=== PATIENT | female | born 1960 | race African-American/Black ===

== ENCOUNTER 2016-12-25 12:36 | Emergency (ER) | payer MEDICAID ==
[~2016-12-25] VITALS: Ht 157.5 cm; Wt 81.6 kg
[~2016-12-25 12:36] MED LIST: AFRIN NASAL SPR30 ML NASAL; ALLERGY10 M1 PO; AMOXICILLIN500 MG ORAL; AURALGAN OTIC S14 ML OT; CLARITIN-D 241 EACH PO; DICLOFENAC SODI25 MG PO; FLONASE1 SPRAYS; FLONASE1 SPRAYS NASAL; HYDROCORTISONE-30 GM TOPIC; IBUPROFEN600 MG ORAL; IBUPROFEN600 MG PO; MELOXICAM15 MG PO; MONISTAT VAGIN; NAPROXEN375 MG ORAL; NITROFURANTOIN100 M2 ORAL; NKM; NORCO 5-325 TA1 EACH ORAL; PHENERGAN/CODE120 ML PO; PROMETHAZI6.25 MG/1 ORAL; PROMETHAZINE V240 ML ORAL; RANITIDINE HCL300 M2 ORAL; TERBINAFINE HC250 MG PO; TESSALON PERLE100 M2 ORAL; TRAMADOL HCL50 MG ORAL; VERTICALM25 MG ORAL; ZITHROMAX250 MG PO; ZYRTEC-D TABLE1 EACH ORAL; no home meds
[2016-12-25 12:54] VITALS: BP 149/92
--- NOTE | 2016-12-25 12:57 | Emergency Room Report ---
History of Present Illness General Chief Complaint: Pain Source: Patient Present Illness HPI 56 y/o female c/o multiple complaints x 1 day. States she was [place] a park for [place] and started having sinus congestion, rhinorrhea and left ear pain. States she used a franca pin to clean out her left ear and went to sleep. States she had slept on 3 pillows and then woke up with pinched nerve in her left side of her neck. States she is taking 500mg APAP w/ some improvement of pain but states she has pain on ROM of neck and left shoulder that is TTP. Denies any current n/v/f/c/d, abd pain, photophobia, phonophobia, CP, SOB or headache. Patient denies any numbness, tingling, pressure, paralysis, cyanosis, bruising, loss of sensation, or loss of range of motion. Allergies: Coded Allergies: CODEINE (Verified Adverse Reaction, Intermediate, PARADOXICAL REACTION, 08/20/12) Patient History Past Medical History: see triage record Past Surgical History: none Pertinent Family History: none Immunizations: UTD Reviewed Nursing Documentation: PMH: Agreed, PSxH: Agreed Nursing Documentation-PMH Past Medical History: No History, Except For Review of Systems All Other Systems: negative except mentioned in HPI Physical Exam Vital Signs Date Time Temp Pulse Resp B/P Pulse Ox O2 Delivery O2 Flow Rate FiO2 12/25/16 12:51 98.4 67 18 149/92 97 Room Air Sp02 EP Interpretation: reviewed, normal General Appearance: no apparent distress, alert, GCS 15, non-toxic Head: normocephalic, atraumatic Eyes: bilateral eye PERRL, bilateral eye normal inspection ENT: hearing grossly normal, no angioedema, normal voice, TMs + canals normal, pharyngeal erythema Neck: full range of motion, no bony tend, supple/symm/no masses, tender lateral - left side radiatiating to anterior left shoulder Respiratory: chest non-tender, lungs clear, normal breath sounds, speaking full sentences Cardiovascular #1: regular rate, rhythm, no edema Musculoskeletal: back normal, gait/station normal, normal range of motion, tender - left shoulder / neck Neurologic: alert, oriented x3, responsive, supervisor roving III-XII nml as tested, motor strength/tone normal, sensory intact, speech normal Psychiatric: judgement/insight normal, memory normal, mood/affect normal, no suicidal/homicidal ideation Skin: normal color, no rash, warm/dry, well hydrated Lymphatic: no adenopathy Medical Decision Making PA Attestation Dr. Howell is my supervising physician with whom patient management has been discussed with. Diagnostic Impression: Primary Impression: Upper respiratory infection Qualified Codes: J00 - Acute nasopharyngitis [common cold] Additional Impression: Cervical muscle strain Qualified Codes: S16.1XXA - Strain of muscle, fascia and tendon at neck level , initial encounter ER Course Pt. presents to the ED c/o of URI sxs and left neck pain Ddx considered but are not limited to bronchitis, pneumonia, viral upper respiratory tract infection, meningitis, muscle strain, contusion, fracture, spinal stenosis, AOM, AOE, TM rupture, trauma Vital signs: are WNL, pt. is afebrile H&PE are most consistent with viral upper respiratory tract infection with cervical muscle strain ORDERS: none required at this time, the diagnosis is clinical ED INTERVENTIONS: None required at this time. DISCHARGE: At this time pt. is stable for d/c to home. Will provide printed patient care instructions, and any necessary prescriptions. Care plan and follow up instructions have been discussed with the patient prior to discharge. Chest X-Ray Diagnostic Results Chest X-Ray Ordered: No Last Vital Signs Date Time Temp Pulse Resp B/P Pulse Ox O2 Delivery O2 Flow Rate FiO2 12/25/16 12:54 98.4 67 18 149/92 97 Room Air Disposition: HOME, SELF-CARE Condition: Stable Scripts Methocarbamol* (ROBAXIN-750*) 750 Mg Tablet 750 MG PO TID, #30 TAB 0 Refills Prov: SABRY,TAMEEM P.A. 12/25/16 Loratadine (LORATADINE) 10 Mg Tablet 10 MG PO DAILY for 14 Days, #14 TAB Prov: SABRY,TAMEEM P.A. 12/25/16 Naproxen* (NAPROXEN*) 500 Mg Tablet 500 MG ORAL TWICE A WEEK, #20 TAB 0 Refills Prov: SABRY,TAMEEM P.A. 12/25/16 Additional Instructions: Take medication as directed. Advise patient to use RICE therapy and avoid exercises for the next 2-3 weeks to help rest the neck. Patient instructed to massage the muscles that are tight or tense, put ice for 5-7 minutes or a frozen bag of peas or cold gel pack on the area for 20 minutes at a time, a few times a day, put heat on the area to reduce pain and stiffness by either taking a hot shower or hot bath, or put a hot towel on the area for no more than 20 minutes at a time. Patient instructed to not use anything too hot that could burn your skin. Advised patient to use salt water gargle PRN. Advised patient to use chloraseptic as needed for throat pain in addition to APAP Q4H. Patient advised they can take Ibuprofen and Tylenol Q6H together for fever control as well. Educated patient on rhinitis and encouraged patient to use OTC nasal decongestants, nasal irrigation / saline sprays, and use of nasal suction such as NoseFrida. Educated patient on the benefits of the various OTC medications available (ie. H1 blockers, decongestants, nasal steroids, etc.). If sxs worsen or don't improve, please return sooner. Go to the ER if you develop SOB, CP, Rash, photophobia, neck pain, throat swelling occur, go to the ER immediately. CHARAN WOODY Dec 25, 2016 12:57
[2016-12-25] MEDS ORDERED: LORATADINE10 M2 PO (13:01)
[2016-12-25] MEDS ORDERED: NAPROXEN500 M2 ORAL (13:01)
[2016-12-25] MEDS ORDERED: ROBAXIN-750750 MG PO (13:01)
[2016-12-25 13:09] VITALS: BP 149/92
== END 2016-12-25 13:11 | disposition home or self-care (01) ==
LOC: EMR 13:00
DX: J00 Acute nasopharyngitis [common cold] (principal); S16.1XXA Strain of muscle, fascia and tendon at neck level, initial encounter; H92.02 Otalgia, left ear; Z88.6 Allergy status to analgesic agent; X58.XXXA Exposure to other specified factors, initial encounter; Y93.84 Activity, sleeping; Y92.9 Unspecified place or not applicable
CPT/HCPCS: 99284

== ENCOUNTER 2017-03-18 00:40 | Emergency (ER) | payer MEDICAID ==
[~2017-03-18] VITALS: Ht 157.5 cm; Wt 81.6 kg
[~2017-03-18 00:40] MED LIST changes: +LORATADINE10 M2 PO; +NAPROXEN500 M2 ORAL; +ROBAXIN-750750 MG PO
--- NOTE | 2017-03-18 00:55 | Emergency Room Report ---
History of Present Illness General Chief Complaint: General Complaint Source: Patient Present Illness HPI Is a 56-year-old female with no significant past medical history. She presents with left knee pain. Onset was acute. Occurred about an hour ago. She was talking to her neighbor when she felt pain to her left knee. No trauma. Hurts with walking. Worse with lifting on the. Denies any nausea vomiting. Denies any fever or chills. Worse with walking. Allergies: Coded Allergies: CODEINE (Verified Adverse Reaction, Intermediate, PARADOXICAL REACTION, 08/20/12) Patient History Past Medical History: see triage record, old chart reviewed Past Surgical History: other Pertinent Family History: none Social History: Denies: smoking Now: No Immunizations: other Reviewed Nursing Documentation: PMH: Agreed, PSxH: Agreed Nursing Documentation-PMH Past Medical History: No Stated History Review of Systems Eye: Denies: eye pain, blurred vision ENT: Denies: ear pain, nose congestion, throat swelling Respiratory: Denies: cough, shortness of breath Cardiovascular: Denies: chest pain, palpitations Gastrointestinal: Denies: abdominal pain, diarrhea, nausea, vomiting Musculoskeletal: Reports: joint pain, Denies: back pain Skin: Denies: rash Neurological: Denies: headache, numbness Endocrine: Denies: increased thirst, increased urine Hematologic/Lymphatic: Denies: easy bruising All Other Systems: negative except mentioned in HPI Physical Exam Vital Signs Date Time Temp Pulse Resp B/P (MAP) Pulse Ox O2 Delivery O2 Flow Rate FiO2 03/18/17 00:49 98.2 78 16 120/80 98 Room Air vitals normal Sp02 EP Interpretation: reviewed, normal General Appearance: well appearing, no apparent distress, alert, obese Head: normocephalic, atraumatic Eyes: bilateral eye PERRL, bilateral eye EOMI ENT: hearing grossly normal, normal pharynx Neck: full range of motion, supple, no meningismus Respiratory: chest non-tender, lungs clear, normal breath sounds Cardiovascular #1: regular rate, rhythm, no murmur Gastrointestinal: normal bowel sounds, non tender, no mass, no organomegaly, no bruit, non-distended Musculoskeletal: back normal, gait/station normal, normal range of motion, other - Left knee with tenderness along the medial meniscus. There is small amount of effusion. Full range of motion but tender movement. No warmth. No redness. Sensation normal. Pulses normal. Neurologic: oriented x3, responsive Psychiatric: mood/affect normal Skin: warm/dry Procedures Splinting Splinting : Consent: Verbal Location: Left knee Pre-Made Type: ADEEL wrap Pre-Proc Neuro Vasc Exam: normal Post-Proc Neuro Vasc Exam: normal Patient Tolerated: Well Complications: None Medical Decision Making Diagnostic Impression: Primary Impression: Sprain of medial meniscus of left knee Qualified Codes: S83.8X2A - Sprain of other specified parts of left knee, initial encounter Additional Impression: Osteoarthritis of left knee Qualified Codes: M17.12 - Unilateral primary osteoarthritis, left knee ER Course Patient with left knee pain. Most likely a strain/tear of the medial meniscus. No evidence of dislocation or fracture. She does have evidence of osteoarthritis. We'll discharge home. Other X-Ray Diagnostic Results Other X-Ray Diagnostic Results : X-Ray ordered: Left knee # of Views/Limited Vs Complete: 4 View Indication: Pain EP Interpretation: Yes Interpretation: no dislocation, no soft tissue swelling, no fractures Impression: No acute disease Interpreting ER Provider: Electronically signed by Ari Henry MD Last Vital Signs Date Time Temp Pulse Resp B/P (MAP) Pulse Ox O2 Delivery O2 Flow Rate FiO2 03/18/17 00:49 98.2 78 16 120/80 98 Room Air Status: improved Disposition: HOME, SELF-CARE Condition: Stable Scripts Ibuprofen* (MOTRIN*) 600 Mg Tablet 600 MG ORAL THREE TIMES A DAY, #30 TAB 0 Refills Prov: ARI HENRY M.D. 03/18/17 Hydrocodone/Acetaminophen 5-325* (HYDROCODONE/ACETAMINOPHEN 5-325*) 1 Each Tablet 1 TAB ORAL Q6H Y for For Pain, #20 TAB 0 Refills Prov: ARI HENRY M.D. 03/18/17 Additional Instructions: Followup with your DrShukri in 7 days. Return if symptom worsen. ARI HENRY M.D. Mar 18, 2017 00:55
[2017-03-18 01:00] VITALS: BP 120/80
[2017-03-18] MEDS ORDERED: HYDROmorphone 1mg/ml Carpuject IM ONE (01:00)
[2017-03-18] MEDS ORDERED: HYDROCODON-ACE1 EA15 ORAL (01:21)
[2017-03-18] MEDS ORDERED: IBUPROFEN600 MG ORAL (01:21)
[2017-03-18 01:25] VITALS: BP 120/80
--- NOTE | 2017-03-19 09:34 | Diagnostic Imaging Report ---
Indication: PAIN Technique: 4 views of the left knee Comparison: None Findings: There is medial compartment degenerative joint space narrowing. There are medial compartment osteophytes. No suprapatellar effusion. There are inferior and superior pole patellar osteophytes. Impression: No acute bony trauma Degenerative changes, as described This agrees with the preliminary interpretation provided overnight by [facility] service.
== END 2017-03-18 01:25 | disposition home or self-care (01) ==
LOC: EMR 01:00
DX: S83.8X2A Sprain of other specified parts of left knee, initial encounter (principal); X58.XXXA Exposure to other specified factors, initial encounter; Y92.89 Other specified places as the place of occurrence of the external cause; M17.12 Unilateral primary osteoarthritis, left knee
CPT/HCPCS: 29530; 73564; 96372; 99284; J1170

== ENCOUNTER 2017-06-29 09:33 | Emergency (ER) | payer MEDICAID ==
[~2017-06-29] VITALS: Ht 157.5 cm; Wt 81.6 kg
[~2017-06-29 09:33] MED LIST changes: +HYDROCODON-ACE1 EA15 ORAL
--- NOTE | 2017-06-29 10:07 | Emergency Room Report ---
History of Present Illness General Chief Complaint: Upper Respiratory Illness Source: Patient Present Illness HPI The patient's been ill since Monday. She has a cough. left ear pain sore, throat and a scratchy voice. No vomiting or diarrhea. She is coughing up phlegm that is yellowish and green. She is uncertain whether she hears herself wheezing. Pain rated at 7/10, throat and ear, constant, sharp and aching. No meds taken. Child is also ill. No chest pain, headache, rashes, NVD, dysuria, joint pain. Not diabetic. Allergies: Coded Allergies: CODEINE (Verified Adverse Reaction, Intermediate, PARADOXICAL REACTION, 08/20/12) Patient History Past Medical History: see triage record Social History: Denies: smoking Social History Narrative here with Raz Jimenez Last Menstrual Period: NA Reviewed Nursing Documentation: PMH: Agreed, PSxH: Agreed Nursing Documentation-PMH Past Medical History: No History, Except For Hx COPD: No - Sinus problem Review of Systems All Other Systems: negative except mentioned in HPI Physical Exam Vital Signs Date Time Temp Pulse Resp B/P (MAP) Pulse Ox O2 Delivery O2 Flow Rate FiO2 06/29/17 09:37 97.7 76 16 138/80 97 Room Air Sp02 EP Interpretation: reviewed, normal General Appearance: well appearing, no apparent distress Head: normocephalic, atraumatic Eyes: bilateral eye normal inspection, bilateral eye PERRL, bilateral eye EOMI ENT: hearing grossly normal, no angioedema, pharyngeal erythema, other - L TM with fluid and slight buldge, R normal Neck: full range of motion, supple Respiratory: lungs clear, normal breath sounds, no respiratory distress, speaking full sentences Cardiovascular #1: regular rate, rhythm Gastrointestinal: normal inspection Musculoskeletal: digits/nails normal, gait/station normal, normal range of motion Neurologic: normal inspection, alert, oriented x3, normal gait, grossly normal Psychiatric: mood/affect normal Skin: no rash Medical Decision Making Diagnostic Impression: Primary Impression: Otitis media Qualified Codes: H66.002 - Acute suppurative otitis media without spontaneous rupture of ear drum, left ear Additional Impression: URI, acute ER Course Patient presents with productive cough, throat pain and L ear pain. Exam c/w otitis media. Antibiotics indicated. Also will give tx for URI symptoms. Not toxic and no significant co-morbidities. Patient stable for outpatient observation and treatment. Last Vital Signs Date Time Temp Pulse Resp B/P (MAP) Pulse Ox O2 Delivery O2 Flow Rate FiO2 06/29/17 10:40 98.3 60 16 135/86 99 Room Air Status: improved Disposition: HOME, SELF-CARE Condition: Improved Scripts Chlorpheniramine Maleate (CHLOR-TRIMETON) 4 Mg Tablet 4 MG PO Q6HR Y for congestion, #10 TAB Prov: Daryn Rios M.D. 06/29/17 Guaifenesin/Codeine Phos* (ROBITUSSIN AC*) 118 Ml Liquid 1 TSP ORAL Q6H Y for For Cough, #60 ML 0 Refills Prov: Daryn Rios M.D. 06/29/17 Amoxicillin* (AMOXIL*) 500 Mg Capsule 500 MG ORAL THREE TIMES A DAY, #21 CAP Prov: Daryn Rios M.D. 06/29/17 Daryn Rios M.D. Jun 29, 2017 10:06
[2017-06-29] MEDS ORDERED: GUAIFENESIN-CO118 M1 ORAL (10:12)
[2017-06-29] MEDS ORDERED: CHLOR-TRIMETON4 MG PO (10:12)
[2017-06-29] MEDS ORDERED: AMOXICILLIN500 MG ORAL (10:12)
[2017-06-29 10:35] VITALS: BP 107/71
[2017-06-29 10:40] VITALS: BP 135/86
== END 2017-06-29 10:45 | disposition home or self-care (01) ==
LOC: EMR 10:15
DX: H66.92 Otitis media, unspecified, left ear (principal); J06.9 Acute upper respiratory infection, unspecified; Z88.6 Allergy status to analgesic agent
CPT/HCPCS: 99283

== ENCOUNTER 2017-07-30 18:13 | Emergency (ER) | payer MEDICAID ==
[~2017-07-30] VITALS: Ht 157.5 cm; Wt 83.9 kg
[~2017-07-30 18:13] MED LIST changes: +CHLOR-TRIMETON4 MG PO; +GUAIFENESIN-CO118 M1 ORAL
[2017-07-30 18:32] VITALS: BP 166/93
[2017-07-30] MEDS ORDERED: NASAL SPRAY SIN30 ML NS (18:48)
[2017-07-30] MEDS ORDERED: TESSALON PERLE100 MG ORAL (18:48)
[2017-07-30] MEDS ORDERED: IBUPROFEN600 MG ORAL (18:48)
--- NOTE | 2017-07-30 18:58 | Emergency Room Report ---
History of Present Illness General Chief Complaint: Sore Throat Source: Patient, Medical Record Present Illness HPI 57-year-old female no significant past medical history presenting with subjective fever chills cough sore throat sinus pain. States that her cousin was sick with the same symptoms. She is still eating and drinking normally. No chest pain or shortness of breath. Did not get the flu shot this year Allergies: Coded Allergies: CODEINE (Verified Adverse Reaction, Intermediate, PARADOXICAL REACTION, 08/20/12) Patient History Past Medical History: see triage record Past Surgical History: none Pertinent Family History: none Last Menstrual Period: menopause Reviewed Nursing Documentation: PMH: Agreed, PSxH: Agreed Nursing Documentation-PMH Past Medical History: No Stated History Hx Cardiac Problems: No Hx Hypertension: No Hx Pacemaker: No Hx Asthma: No Hx COPD: No Hx Diabetes: No Hx Cancer: No Hx Gastrointestinal Problems: No Hx Dialysis: No History Of Psychiatric Problem: No Hx Neurological Problems: No Hx Cerebrovascular Accident: No Hx Seizures: No Review of Systems All Other Systems: negative except mentioned in HPI Physical Exam Vital Signs Date Time Temp Pulse Resp B/P (MAP) Pulse Ox O2 Delivery O2 Flow Rate FiO2 07/30/17 18:21 98.8 65 16 166/93 97 Room Air Sp02 EP Interpretation: reviewed, normal General Appearance: alert, GCS 15, non-toxic, mild distress Head: normocephalic, atraumatic Eyes: bilateral eye normal inspection, bilateral eye PERRL, bilateral eye EOMI ENT: pharyngeal erythema Neck: normal inspection, full range of motion, supple Respiratory: normal inspection, lungs clear, normal breath sounds, no respiratory distress, no retraction, no wheezing, speaking full sentences, chest symmetrical Cardiovascular #1: normal inspection, regular rate, rhythm, no edema, normal capillary refill Cardiovascular #2: 2+ radial (R), 2+ radial (L) Gastrointestinal: normal inspection, non tender, soft, non-distended, no guarding Musculoskeletal: normal inspection, back normal, normal range of motion, non- tender Neurologic: normal inspection, alert, oriented x3, responsive, motor strength/ tone normal, sensory intact, normal gait, speech normal Psychiatric: normal inspection, judgement/insight normal, memory normal Skin: normal inspection, normal color, no rash, warm/dry, well hydrated, normal turgor Medical Decision Making Diagnostic Impression: Primary Impression: URI, acute ER Course 57-year-old female with flulike symptoms, cough runny nose fever DDX: Likely viral URI, lung exam is normal Plan: Motrin ER course: Patient has remained stable during ED stay. Nontoxic appearing, ambulatory to emergency room Disposition: Patient is to be discharged to home. Prescriptions given are Motrin, Tessalon pearls, nasal spray Patient is instructed to follow up with their primary care doctor within 5 days. Strict return precautions discussed with patient such as fever, chills, worsening/severe pain, chest pain, SOB, nausea, vomiting, which may indicate severe illness. Patient verbalizes understanding and agrees with plan. Please note that this Emergency Department Report was dictated using [employer] Systemsen[employer]al engineering manager technology software, occasionally this can lead to erroneous entry secondary to interpretation by the dictation equipment Laboratory Tests Test 07/30/17 18:25 Urine Color Pale yellow Urine Appearance Clear Urine pH 5 (4.5-8.0) Urine Specific [place] 1.020 (1.005-1.035) Urine Protein Negative (NEGATIVE) Urine Glucose (UA) Negative (NEGATIVE) Urine Ketones Negative (NEGATIVE) Urine Occult Blood 1+ (NEGATIVE) H Urine Nitrite Negative (NEGATIVE) Urine Bilirubin Negative (NEGATIVE) Urine Urobilinogen Normal MG/DL (0.0-1.0) Urine Leukocyte Esterase 1+ (NEGATIVE) H Urine RBC 0-2 /HPF (0 - 2) Urine WBC 2-4 /HPF (0 - 2) Urine Squamous Epithelial Cells Few /LPF (NONE/OCC) Urine Bacteria Few /HPF (NONE) Last Vital Signs Date Time Temp Pulse Resp B/P (MAP) Pulse Ox O2 Delivery O2 Flow Rate FiO2 07/30/17 18:32 98.8 78 16 166/93 97 Room Air Disposition: HOME, SELF-CARE Condition: Improved Scripts Benzonatate* (TESSALON PERLE*) 100 Mg Capsule 100 MG ORAL THREE TIMES A DAY, #21 PERLE Prov: Retino,Clairose M.D. 07/30/17 Ibuprofen* (MOTRIN*) 600 Mg Tablet 600 MG ORAL Q8H Y for For Pain, #30 TAB 0 Refills Prov: Retino,Clairose M.D. 07/30/17 Oxymetazoline Hcl (NASAL SPRAY SINUS) 30 Ml Shelly 30 ML NS BID, #1 SPRAY Prov: Retino,Clairose M.D. 07/30/17 Patient Instructions: Upper Respiratory Infection, Adult, [id number] Gaby Subramanian M.D. Jul 30, 2017 18:58
[2017-07-30 19:02] LABS: APPEARANCE,URINE CLEAR; BILIRUBIN, URINE NEGATIVE (NEGATIVE); COLOR,URINE PALE YELLOW; GLUCOSE, URINE (UA) NEGATIVE (NEGATIVE); KETONES,URINE NEGATIVE (NEGATIVE); LEUKOCYTE ESTERASE ,URINE 1+ (NEGATIVE); NITRITE,URINE NEGATIVE (NEGATIVE); PH,URINE 5 (4.5-8.0); PROTEIN,URINE NEGATIVE (NEGATIVE); UROBILINOGEN,URINE NORMAL MG/DL (0.0-1.0)
[2017-07-30 19:20] VITALS: BP 145/89
[2017-07-30 19:25] VITALS: BP 145/89
== END 2017-07-30 19:25 | disposition home or self-care (01) ==
LOC: EMR 18:30
DX: J06.9 Acute upper respiratory infection, unspecified (principal); Z88.6 Allergy status to analgesic agent
CPT/HCPCS: 81003; 99283

== ENCOUNTER 2017-08-07 20:31 | Emergency (ER) | payer MEDICAID ==
[~2017-08-07] VITALS: Ht 157.5 cm; Wt 81.6 kg
[~2017-08-07 20:31] MED LIST changes: +NASAL SPRAY SIN30 ML NS; +TESSALON PERLE100 MG ORAL
[2017-08-07] MEDS ORDERED: GUAIFENESIN-CO118 M1 ORAL (21:16)
[2017-08-07] MEDS ORDERED: CLARITIN10 MG ORAL (21:16)
[2017-08-07 21:21] VITALS: BP 132/72
--- NOTE | 2017-08-08 01:50 | Emergency Room Report ---
History of Present Illness General Chief Complaint: Flu Like Symptoms Source: Patient Present Illness HPI Patient describes having intermittent cough which is nonproductive or with clear phlegm. Additionally, patient had a sore throat. Has not changed over the past few days. No current fever. Patient denied nausea or vomiting. Cough presented for several days. Patient reports having worsening with sleep. She denies any chest pain Allergies: Coded Allergies: CODEINE (Verified Adverse Reaction, Intermediate, PARADOXICAL REACTION, 08/20/12) Patient History Past Medical History: see triage record Last Menstrual Period: NA Now: No Reviewed Nursing Documentation: PMH: Agreed, PSxH: Agreed Nursing Documentation-PMH Past Medical History: No Stated History Hx Cardiac Problems: No Hx Hypertension: No Hx Pacemaker: No Hx Asthma: No Hx COPD: No Hx Diabetes: No Hx Cancer: No Hx Gastrointestinal Problems: No Hx Dialysis: No Hx Neurological Problems: No Hx Cerebrovascular Accident: No Hx Seizures: No Review of Systems All Other Systems: negative except mentioned in HPI Physical Exam Vital Signs Date Time Temp Pulse Resp B/P (MAP) Pulse Ox O2 Delivery O2 Flow Rate FiO2 08/07/17 20:42 97.9 70 18 132/72 98 Room Air General Appearance: well appearing, no apparent distress, alert, GCS 15 Head: normocephalic, atraumatic ENT: hearing grossly normal, normal voice Neck: full range of motion, supple Respiratory: no respiratory distress, speaking full sentences Cardiovascular #1: normal inspection Gastrointestinal: normal inspection Musculoskeletal: normal inspection, no calf tenderness Neurologic: normal gait Psychiatric: mood/affect normal Skin: no rash Medical Decision Making Diagnostic Impression: Primary Impression: Upper respiratory infection, viral ER Course Patient presented for cough.Differential diagnosis included but was not limited to bronchitis, chf, pneumonia, pulmonary embolism, pericarditis, asthma, foreign body. Patient has a benign exam and does not appear to require any further imaging or laboratory testing at this time. Patient was given medications for cough. The patient is advised to follow up with primary care doctor in 1-2 days. Patient is advised to return if any worsening condition or if any changes in status that are concerning. This report is dictated with [employer] fine jewelry sales associate software which may occasionally lead to discrepancies related to use of this software. Last Vital Signs Date Time Temp Pulse Resp B/P (MAP) Pulse Ox O2 Delivery O2 Flow Rate FiO2 08/07/17 21:21 97.9 18 132/72 98 Room Air 08/07/17 20:50 70 Status: improved Disposition: HOME, SELF-CARE Condition: Stable Scripts Loratadine (CLARITIN) 10 Mg Tablet 10 MG ORAL DAILY, #30 TAB Prov: Lopez Howell 08/07/17 Guaifenesin/Codeine Phos* (ROBITUSSIN AC*) 118 Ml Liquid 1 TSP ORAL Q6H Y for For Cough, #60 ML 0 Refills Prov: Lopez Howell 08/07/17 Referrals: [facility],REFERRING (PCP) Patient Instructions: Upper Respiratory Infection, Adult Lopez Howell Aug 08, 2017 01:50
== END 2017-08-07 21:21 | disposition home or self-care (01) ==
LOC: EMR 21:20
DX: J06.9 Acute upper respiratory infection, unspecified (principal); B34.9 Viral infection, unspecified; Z88.5 Allergy status to narcotic agent
CPT/HCPCS: 99283

== ENCOUNTER 2017-10-30 15:37 | Emergency (ER) | payer MEDICAID ==
[~2017-10-30] VITALS: Ht 157.5 cm; Wt 83.9 kg
[~2017-10-30 15:37] MED LIST changes: +CLARITIN10 MG ORAL
[2017-10-30 15:48] VITALS: BP 141/76
[2017-10-30] MEDS ORDERED: NKM (15:50)
--- NOTE | 2017-10-30 16:21 | Emergency Room Report ---
History of Present Illness General Chief Complaint: Upper Respiratory Illness Source: Patient Present Illness HPI 57-year-old female presents to the emergency department complaining of dry cough , subjective fevers, nasal congestion, rhinorrhea and frontal sinus pressure. Patient states her symptoms have been going on for 3 days she reports that her boyfriend is ill as well and he came down the symptoms first. Patient reports bilateral ear fullness. She denies pain. Denies ST, high fevers, lethargy, neck pain/stiffness, irritability, photophobia dehydration, N/V/D. Denies Cp, Palpitations, LOC, AMS, seizures, paresthesias, or changes in Hearing or vision , no Sudden severe ABRAHAM Allergies: Coded Allergies: CODEINE (Verified Adverse Reaction, Intermediate, PARADOXICAL REACTION, 08/20/12) Patient History Past Medical History: see triage record Past Surgical History: none Pertinent Family History: none Last Menstrual Period: menopause Reviewed Nursing Documentation: PMH: Agreed; PSxH: Agreed Nursing Documentation-PMH Past Medical History: No Stated History Hx Cardiac Problems: No Hx Hypertension: No Hx Pacemaker: No Hx Asthma: No Hx COPD: No Hx Diabetes: No Hx Cancer: No Hx Gastrointestinal Problems: No Hx Dialysis: No Hx Neurological Problems: No Hx Cerebrovascular Accident: No Hx Seizures: No Review of Systems All Other Systems: negative except mentioned in HPI Physical Exam Vital Signs Date Time Temp Pulse Resp B/P (MAP) Pulse Ox O2 Delivery O2 Flow Rate FiO2 10/30/17 15:48 98.6 79 18 141/76 100 Room Air 98.6 Sp02 EP Interpretation: reviewed, normal General Appearance: no apparent distress, alert, GCS 15, non-toxic Head: normocephalic, atraumatic Eyes: bilateral eye normal inspection, bilateral eye PERRL ENT: hearing grossly normal, normal pharynx, normal voice, TMs + canals normal , uvula midline, moist mucus membranes, nasal congestion, pharyngeal erythema Neck: full range of motion, no meningismus Respiratory: chest non-tender, lungs clear, normal breath sounds, no respiratory distress, no wheezing, speaking full sentences Cardiovascular #1: regular rate, rhythm Musculoskeletal: back normal, gait/station normal, normal range of motion, non- tender Neurologic: alert, oriented x3, responsive, motor strength/tone normal, sensory intact, speech normal, grossly normal Psychiatric: judgement/insight normal Skin: normal color, no rash, warm/dry, well hydrated Lymphatic: no adenopathy Medical Decision Making PA Attestation Dr. Vergara is my supervising Physician whom patient management has been discussed with. Diagnostic Impression: Primary Impression: Bronchitis Additional Impression: Upper respiratory infection, viral ER Course 57-year-old female presents to the emergency department complaining of dry cough , subjective fevers, nasal congestion, rhinorrhea and frontal sinus pressure. Patient states her symptoms have been going on for 3 days she reports that her boyfriend is ill as well and he came down the symptoms first. Patient reports bilateral ear fullness. She denies pain. Denies ST, high fevers, lethargy, neck pain/stiffness, irritability, photophobia dehydration, N/V/D. Denies Cp, Palpitations, LOC, AMS, seizures, paresthesias, or changes in Hearing or vision , no Sudden severe ABRAHAM. Ddx considered but are not limited to URI, pneumonia, PE, strep pharyngitis, meningitis. Vital signs: Pt.is afebrile VS are WNL H&PE are most consistent with bronchitis ORDERS: none required at this time, the diagnosis is clinical ED INTERVENTIONS: None required at this time. DISCHARGE: At this time pt. is stable for d/c to home. Will provide printed patient care instructions, and any necessary prescriptions. Care plan and follow up instructions have been discussed with the patient prior to discharge. Last Vital Signs Date Time Temp Pulse Resp B/P (MAP) Pulse Ox O2 Delivery O2 Flow Rate FiO2 10/30/17 15:48 98.6 79 18 141/76 100 Room Air 98.6 Disposition: HOME, SELF-CARE Condition: Stable Scripts Acetaminophen* (TYLENOL EXTRA STRENGTH*) 500 Mg Tablet 500 MG ORAL Q6H PRN for Mild Pain/Temp > 100.5, #20 TAB 0 Refills Prov: Katie Cardenas P.A. 10/30/17 Loratadine/Pseudoephedrine (CLARITIN-D 12 HOUR TABLET) 1 Each Tab.er.12h 1 TAB ORAL EVERY 12 HOURS for 10 Days, #20 TAB Prov: Katie Cardenas P.A. 10/30/17 Guaifenesin (Guaifenesin) 1,200 Mg Tab.er.12h 1200 MG PO BID, #20 TAB Prov: Katie Cardenas 10/30/17 Codeine/Promethazine Hcl* (PROMETHAZINE-CODEINE SYRUP*) 118 Ml Syrup 5 ML ORAL Q6H PRN for For Cough, #120 ML 0 Refills Prov: Katie Cardenas 10/30/17 Patient Instructions: Upper Respiratory Infection, Adult Additional Instructions: Take medications as directed. Follow up with a Primary Care Provider in 3-5 days, even if your symptoms have resolved. --Please review list of primary care clinics, if you do not already have a primary care provider Return sooner to ED if new symptoms occur, or current symptoms become worse. Do not drink alcohol, drive, or operate heavy machinery while taking cough as this may cause drowsiness. - Please note that this Emergency Department Report was dictated using Pure[employer]ense[employer] campaign specialist technology software, occasionally this can lead to erroneous entry secondary to interpretation by the dictation equipment. Katie Cardenas Oct 30, 2017 16:21
[2017-10-30] MEDS ORDERED: TYLENOL EXTRA500 MG ORAL (16:23)
[2017-10-30] MEDS ORDERED: GUAIFENESIN1200 MG PO (16:23)
[2017-10-30] MEDS ORDERED: CLARITIN-D 121 EAC1 ORAL (16:23)
[2017-10-30] MEDS ORDERED: PROMETHAZINE-C118 M1 ORAL (16:23)
[2017-10-30 16:29] VITALS: BP 141/76
== END 2017-10-30 16:30 | disposition home or self-care (01) ==
LOC: EMR 16:30
DX: J20.9 Acute bronchitis, unspecified (principal); J06.9 Acute upper respiratory infection, unspecified; Z88.6 Allergy status to analgesic agent
CPT/HCPCS: 99284

== ENCOUNTER 2017-11-06 22:09 | Emergency (ER) | payer MEDICAID ==
[~2017-11-06] VITALS: Ht 157.5 cm; Wt 81.6 kg
[~2017-11-06 22:09] MED LIST changes: +CLARITIN-D 121 EAC1 ORAL; +GUAIFENESIN1200 MG PO; +PROMETHAZINE-C118 M1 ORAL; +TYLENOL EXTRA500 MG ORAL
[2017-11-06 22:20] VITALS: BP 158/86
[2017-11-06] MEDS ORDERED: PROMETHAZI6.25 MG/1 ORAL (22:22)
--- NOTE | 2017-11-06 22:57 | Emergency Room Report ---
History of Present Illness General Chief Complaint: Earache Source: Patient Present Illness HPI Is a 57-year-old female with no past medical history. She presents with chief point right ear pain. She has a cough and congestion for last week. Seen her doctor today and placed on Phenergan cough medicine. When she got home she started having right ear pain. [place] popping sensation. Worse with coughing and sneezing. Pain is 9 out of 10. Nothing made it better. No fever. Allergies: Coded Allergies: CODEINE (Verified Adverse Reaction, Intermediate, PARADOXICAL REACTION, 08/20/12) Patient History Past Medical History: none, see triage record, old chart reviewed Past Surgical History: none Pertinent Family History: none Social History: Denies: smoking Now: No Immunizations: other Reviewed Nursing Documentation: PMH: Agreed; PSxH: Agreed Nursing Documentation-PMH Past Medical History: No Stated History Hx Cardiac Problems: No Hx Hypertension: No Hx Pacemaker: No Hx Asthma: No Hx COPD: No Hx Diabetes: No Hx Cancer: No Hx Gastrointestinal Problems: No Hx Dialysis: No Hx Neurological Problems: No Hx Cerebrovascular Accident: No Hx Seizures: No Review of Systems Eye: Denies: eye pain, blurred vision ENT: Reports: ear pain, nose congestion; Denies: throat swelling Respiratory: Reports: cough; Denies: shortness of breath Cardiovascular: Denies: chest pain, palpitations Gastrointestinal: Denies: abdominal pain, diarrhea, nausea, vomiting Musculoskeletal: Denies: back pain, joint pain Skin: Denies: rash Neurological: Denies: headache, numbness Endocrine: Denies: increased thirst, increased urine Hematologic/Lymphatic: Denies: easy bruising All Other Systems: negative except mentioned in HPI Physical Exam Vital Signs Date Time Temp Pulse Resp B/P (MAP) Pulse Ox O2 Delivery O2 Flow Rate FiO2 11/06/17 22:17 98.6 81 19 158/86 97 Room Air 98.6 vitals with elevated blood pressure Sp02 EP Interpretation: reviewed, normal General Appearance: well appearing, no apparent distress, alert Head: normocephalic, atraumatic Eyes: bilateral eye PERRL, bilateral eye EOMI ENT: hearing grossly normal, normal pharynx, other - Right TM is erythematous with effusion. Neck: full range of motion, supple, no meningismus Respiratory: chest non-tender, lungs clear, normal breath sounds Cardiovascular #1: regular rate, rhythm, no murmur Gastrointestinal: normal bowel sounds, non tender, no mass, no organomegaly, no bruit, non-distended Musculoskeletal: back normal, gait/station normal, normal range of motion Psychiatric: mood/affect normal Skin: warm/dry Medical Decision Making Diagnostic Impression: Primary Impression: Upper respiratory infection, viral Additional Impression: Right otitis media with effusion ER Course Patient with viral illness complicated by otitis media. No perforation. No mastoiditis or meningitis or other serious bacterial infection. Last Vital Signs Date Time Temp Pulse Resp B/P (MAP) Pulse Ox O2 Delivery O2 Flow Rate FiO2 11/06/17 22:20 98.6 81 19 158/86 97 Room Air 98.6 Status: improved Disposition: HOME, SELF-CARE Condition: Stable Scripts Ibuprofen* (MOTRIN*) 600 Mg Tablet 600 MG ORAL THREE TIMES A DAY, #30 TAB 0 Refills Prov: CATIE MIX M.D. 11/06/17 Pseudoephedrine Hcl* (SUDAFED*) 60 Mg Tablet 60 MG PO Q6H, #20 TAB Prov: CATIE MIX M.D. 11/06/17 Amoxicillin/Potassium Clav 875-125* (AUGMENTIN 875-125 TABLET*) 1 Each Tablet 1 TAB ORAL TWICE A DAY, #14 TAB Prov: CATIE MIX M.D. 11/06/17 Patient Instructions: Otitis Media, Adult, [id number] Additional Instructions: Follow-up with your doctor in 7 days. Return if worse. CATIE MIX M.D. Nov 06, 2017 22:57
[2017-11-06] MEDS ORDERED: Norco 5mg/325mg tab ORAL ONE (23:00)
[2017-11-06] MEDS ORDERED: AUGMENTIN 875-1 EAC1 ORAL (23:01)
[2017-11-06] MEDS ORDERED: IBUPROFEN600 MG ORAL (23:01)
[2017-11-06] MEDS ORDERED: PSEUDOEPHEDRINE60 MG PO (23:01)
[2017-11-06 23:08] VITALS: BP 158/86
== END 2017-11-06 23:10 | disposition home or self-care (01) ==
LOC: EMR 22:50
DX: J06.9 Acute upper respiratory infection, unspecified (principal); H65.91 Unspecified nonsuppurative otitis media, right ear
CPT/HCPCS: 99284

== ENCOUNTER 2017-11-08 08:34 | Emergency (ER) | payer MEDICAID ==
[~2017-11-08] VITALS: Ht 157.5 cm; Wt 86.2 kg
[~2017-11-08 08:34] MED LIST changes: +AUGMENTIN 875-1 EAC1 ORAL; +PSEUDOEPHEDRINE60 MG PO
[2017-11-08 08:48] VITALS: BP 141/85
--- NOTE | 2017-11-08 08:57 | Emergency Room Report ---
History of Present Illness General Chief Complaint: Earache Source: Patient Present Illness HPI 57-year-old female with recent diagnosis of acute otitis media presenting with a ringing of her right ear, states that she has a ringing since this morning, a buzzing sound. No loss of hearing. No headache no dizziness. Is on day 5 of her antibiotics. No fever no chills no neck pain Allergies: Coded Allergies: CODEINE (Verified Adverse Reaction, Intermediate, PARADOXICAL REACTION, 08/20/12) Patient History Past Medical History: see triage record Past Surgical History: none Pertinent Family History: none Last Menstrual Period: menopause Reviewed Nursing Documentation: PMH: Agreed; PSxH: Agreed Nursing Documentation-PMH Past Medical History: No Stated History Hx Cardiac Problems: No Hx Hypertension: No Hx Pacemaker: No Hx Asthma: No Hx COPD: No Hx Diabetes: No Hx Cancer: No Hx Gastrointestinal Problems: No Hx Dialysis: No History Of Psychiatric Problem: No Hx Neurological Problems: No Hx Cerebrovascular Accident: No Hx Seizures: No Review of Systems All Other Systems: negative except mentioned in HPI Physical Exam Vital Signs Date Time Temp Pulse Resp B/P (MAP) Pulse Ox O2 Delivery O2 Flow Rate FiO2 11/08/17 08:40 98.3 74 16 141/85 95 Room Air 98.2 Sp02 EP Interpretation: reviewed, normal General Appearance: alert, GCS 15, non-toxic, mild distress Head: normocephalic, atraumatic Eyes: bilateral eye normal inspection, bilateral eye PERRL, bilateral eye EOMI ENT: other - Right TM with some erythema, dullness, no light reflex, left TM normal Neck: normal inspection, full range of motion, supple Respiratory: normal inspection, lungs clear, normal breath sounds, no respiratory distress, no retraction, no wheezing, speaking full sentences, chest symmetrical Cardiovascular #1: normal inspection, regular rate, rhythm, no edema, normal capillary refill Cardiovascular #2: 2+ radial (R), 2+ radial (L) Gastrointestinal: normal inspection, non tender, soft, non-distended, no guarding Musculoskeletal: normal inspection, back normal, normal range of motion, non- tender Neurologic: normal inspection, alert, oriented x3, responsive, motor strength/ tone normal, sensory intact, normal gait, speech normal Psychiatric: normal inspection, judgement/insight normal, memory normal Skin: normal inspection, normal color, no rash, warm/dry, well hydrated, normal turgor Medical Decision Making Diagnostic Impression: Primary Impression: Tinnitus Additional Impression: Otitis media ER Course 57-year-old female with buzzing sound in her right ear DDX: tinnitus secondary to acute otitis media Plan: none ER course: Patient has remained stable during ED stay. Disposition: Patient is to be discharged to home. Patient is instructed to follow up with their PCP in 5 days also told to follow- up with ENT if she continues to have issues. Also instructed to finish her antibiotic treatment as instructed Please note that this Emergency Department Report was dictated using [employer] steward technology software, occasionally this can lead to erroneous entry secondary to interpretation by the dictation equipment Last Vital Signs Date Time Temp Pulse Resp B/P (MAP) Pulse Ox O2 Delivery O2 Flow Rate FiO2 11/08/17 08:48 98.2 16 141/85 95 Room Air 98.2 11/08/17 08:40 74 Disposition: HOME, SELF-CARE Condition: Stable Patient Instructions: Otitis Media, Adult, [id number], Tinnitus Gaby Subramanian M.D. Nov 08, 2017 08:57
[2017-11-08 09:05] VITALS: BP 141/85
== END 2017-11-08 09:05 | disposition home or self-care (01) ==
LOC: EMR 08:59
DX: H93.11 Tinnitus, right ear (principal); H66.91 Otitis media, unspecified, right ear; Z88.5 Allergy status to narcotic agent
CPT/HCPCS: 99282

== ENCOUNTER 2018-01-26 15:17 | Emergency (ER) | payer MEDICAID ==
[~2018-01-26] VITALS: Ht 157.5 cm; Wt 81.6 kg
--- NOTE | 2018-01-26 15:29 | Emergency Room Report ---
History of Present Illness General Chief Complaint: itching Source: Patient Present Illness HPI Patient is a 58-year-old female who presents complaining of left arm rash with itching that began today after working in the backyard. The patient has not tried putting anything on it. The episode occurred approximately 3 hours ago. She denies any other complaints at this time Allergies: Coded Allergies: CODEINE (Verified Adverse Reaction, Intermediate, PARADOXICAL REACTION, 08/20/12) Patient History Past Medical History: see triage record Pertinent Family History: none Social History: Denies: smoking, alcohol use, drug use Nursing Documentation-PMH Hx Cardiac Problems: No Hx Hypertension: No Hx Pacemaker: No Hx Asthma: No Hx COPD: No Hx Diabetes: No Hx Cancer: No Hx Gastrointestinal Problems: No Hx Dialysis: No Hx Neurological Problems: No Hx Cerebrovascular Accident: No Hx Seizures: No Review of Systems Constitutional: Reports: no symptoms; Denies: see HPI, chills, sweats, fever, malaise, weakness, other Eye: Reports: no symptoms; Denies: see HPI, eye pain, blurred vision, tearing, double vision, nose pain, nose congestion, acuity changes, discharge, other Respiratory: Reports: no symptoms; Denies: see HPI, cough, orthopnea, shortness of breath, stridor, wheezing, GARCIA, sputum, other Cardiovascular: Reports: no symptoms; Denies: see HPI, chest pain, edema, palpitations, syncope, PND, other Gastrointestinal: Reports: no symptoms; Denies: see HPI, abdominal pain, constipation, diarrhea, nausea, vomiting, melena, hematemesis, other Skin: Reports: see HPI Allergic: Reports: see HPI Physical Exam General Appearance: normal inspection, well appearing, no apparent distress Head: normocephalic, atraumatic Eyes: bilateral eye normal inspection, bilateral eye PERRL Neck: full range of motion, supple/symm/no masses Respiratory: chest non-tender, lungs clear, normal breath sounds, speaking full sentences Skin: normal inspection, normal color, rash - 2 areas, circular, to the left posterior arm approximately 1 cm in diameter each that are raised and slightly erythematous. There are no vesicles, pustules or other lesions noted. Medical Decision Making Diagnostic Impression: Primary Impression: Urticaria ER Course Patient has a small area of urticaria on the left arm. It appears that she brushed up against something while working in the yard. 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 Patient agrees with plan and will follow up with her PCP if needed. She has been instructed to return to the emergency department for any new or worsening or concerning symptoms. Disposition: HOME, SELF-CARE Condition: Stable Antonio Ramirez MD Jan 26, 2018 15:29
[2018-01-26 15:32] VITALS: BP 141/85
[2018-01-26 15:35] VITALS: BP 141/85
== END 2018-01-26 16:00 | disposition home or self-care (01) ==
LOC: EMR 15:52
DX: L50.9 Urticaria, unspecified (principal); Z88.5 Allergy status to narcotic agent
CPT/HCPCS: 99282

== ENCOUNTER 2018-05-27 13:01 | Emergency (ER) | payer MEDICAID ==
[~2018-05-27] VITALS: Ht 157.5 cm; Wt 81.6 kg
[2018-05-27 13:07] VITALS: BP 137/75
[2018-05-27] MEDS ORDERED: NKM (13:12)
[2018-05-27] MEDS ORDERED: AMOXICILLIN500 MG ORAL (13:34)
[2018-05-27] MEDS ORDERED: IBUPROFEN600 MG ORAL (13:34)
--- NOTE | 2018-05-27 13:40 | Emergency Room Report ---
History of Present Illness General Chief Complaint: Earache Source: Patient Present Illness HPI Patient is a 58 old female presenting for left ear pain for the past 3 days. She states that she often gets ear infections and this feels the same. She does admit to using Q-tips. Pain is a 7 out of 10 dull ache and does not radiate. Worse with touch. She denies other symptoms including N, V, F, chills , rash, SOB Allergies: Coded Allergies: CODEINE (Verified Adverse Reaction, Intermediate, PARADOXICAL REACTION, 08/20/12) Patient History Past Medical History: see triage record Pertinent Family History: none Reviewed Nursing Documentation: PMH: Agreed; PSxH: Agreed Nursing Documentation-PMH Hx Cardiac Problems: No Hx Hypertension: No Hx Pacemaker: No Hx Asthma: No Hx COPD: No Hx Diabetes: No Hx Cancer: No Hx Gastrointestinal Problems: No Hx Dialysis: No Hx Neurological Problems: No Hx Cerebrovascular Accident: No Hx Seizures: No Review of Systems All Other Systems: negative except mentioned in HPI Physical Exam Vital Signs Date Time Temp Pulse Resp B/P (MAP) Pulse Ox O2 Delivery O2 Flow Rate FiO2 05/27/18 13:07 97.9 76 20 137/75 93 Room Air Sp02 EP Interpretation: reviewed, normal General Appearance: no apparent distress, alert, GCS 15, non-toxic Head: normocephalic, atraumatic Eyes: bilateral eye normal inspection, bilateral eye PERRL ENT: hearing grossly normal, normal pharynx, no angioedema, normal voice, other - L TM intact. Erythema and bulging. EAC unremarkable Neck: full range of motion, supple/symm/no masses Respiratory: chest non-tender, lungs clear, normal breath sounds, speaking full sentences Cardiovascular #1: regular rate, rhythm, no edema Neurologic: alert, oriented x3, responsive, motor strength/tone normal, sensory intact, speech normal Psychiatric: judgement/insight normal, memory normal, mood/affect normal, no suicidal/homicidal ideation Skin: normal color, no rash, warm/dry, well hydrated Lymphatic: no adenopathy Medical Decision Making PA Attestation Dr. Vergara is my supervising physician. Patient management was discussed with my supervising physician Diagnostic Impression: Primary Impression: Otitis media, left Qualified Codes: H66.92 - Otitis media, unspecified, left ear ER Course Patient is a 58 old female presenting for left ear pain for the past 3 days. DDx considered but not limited to: otitis media, otitis externa, pharyngitis, among others Physical exam: Vitals within normal limits. No apparent distress HEENT exam: There is L tympanic membrane erythema and bulging. External auditory canal unremarkable. No tenderness to palpation over tragus. No nasal discharge. No tonsillar edema or erythema. No exudate Lungs are clear to auscultation bilaterally The patient will be discharged home with a prescription for amoxicillin and will followup with PMD. ER precautions are given Last Vital Signs Date Time Temp Pulse Resp B/P (MAP) Pulse Ox O2 Delivery O2 Flow Rate FiO2 05/27/18 13:07 97.9 76 20 137/75 93 Room Air Status: improved Disposition: HOME, SELF-CARE Condition: Improved Scripts Amoxicillin* (AMOXIL*) 500 Mg Capsule 500 MG ORAL Q12HR, #10 CAP Prov: ARAMIS DUARTE.Susanne 05/27/18 Ibuprofen* (MOTRIN*) 600 Mg Tablet 600 MG ORAL Q8H PRN for For Pain, #30 TAB 0 Refills Prov: ARAMIS DUARTE.Susanne 05/27/18 Patient Instructions: Otitis Media, Adult Additional Instructions: I discussed my findings with the patient. All questions and concerns have been answered. Treatment and medication compliance have been addressed. I advised the patient that they need to follow up with PMD in 3-5 days. Return to ED if pain remains or worsens, cough worsens or remains, you notice blood in your sputum, you notice wheezing, you experience a fever, or if needed for any reason. Patient verbalized understanding of discharge instructions. ARAMIS DUARTE May 27, 2018 13:40
[2018-05-27 13:44] VITALS: BP 124/76
[2018-05-28] MEDS ORDERED: GUAIFENESIN-CO118 M1 ORAL (21:02)
[2018-05-28] MEDS ORDERED: TYLENOL325 MG ORAL (21:02)
[2018-05-28] MEDS ORDERED: CHLOR-TRIMETON4 MG PO (21:02)
[2018-05-28] MEDS ORDERED: ONDANSETRON ODT4 MG BC (21:02)
== END 2018-05-27 13:46 | disposition home or self-care (01) ==
LOC: EMR 13:40
DX: H66.92 Otitis media, unspecified, left ear (principal); Z88.5 Allergy status to narcotic agent
CPT/HCPCS: 99282

== ENCOUNTER 2018-05-28 20:02 | Emergency (ER) | payer MEDICAID ==
[~2018-05-28] VITALS: Ht 157.5 cm; Wt 86.2 kg
[2018-05-28 20:16] VITALS: BP 157/87
--- NOTE | 2018-05-28 20:59 | Emergency Room Report ---
History of Present Illness General Chief Complaint: Flu Like Symptoms Source: Patient Present Illness HPI Patient presents after being started on antibiotics and Motrin for an otitis media on the left-hand side. She complains of weakness and nausea. She last took Motrin at 3 PM today. She has a cough which is keeping her awake at night. She denies diabetes. The nausea is bothering her the most at this time. She states pain is 10/10 L ear, but also says the nausea is what is making her feel ill. No VD, dysuria, chest pain, abdominal pain, myalgias. 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 Period: n/a Reviewed Nursing Documentation: PMH: Agreed; PSxH: Agreed Nursing Documentation-PMH Past Medical History: No Stated History Hx Cardiac Problems: No Hx Hypertension: No Hx Pacemaker: No Hx Asthma: No Hx COPD: No Hx Diabetes: No Hx Cancer: No Hx Gastrointestinal Problems: No Hx Dialysis: No Hx Neurological Problems: No Hx Cerebrovascular Accident: No Hx Seizures: No Review of Systems All Other Systems: negative except mentioned in HPI Physical Exam Vital Signs Date Time Temp Pulse Resp B/P (MAP) Pulse Ox O2 Delivery O2 Flow Rate FiO2 05/28/18 20:06 98.8 80 20 157/87 95 Room Air General Appearance: well appearing, no apparent distress Head: normocephalic, atraumatic ENT: hearing grossly normal, normal pharynx, normal voice, moist mucus membranes, other - TM red and buldge L, R normal Neck: full range of motion, supple Respiratory: no respiratory distress, speaking full sentences Gastrointestinal: normal bowel sounds, non tender Genitourinary: no CVA tenderness Musculoskeletal: back normal, digits/nails normal, gait/station normal, normal range of motion Neurologic: alert, oriented x3, normal gait, grossly normal Psychiatric: mood/affect normal Skin: no rash Medical Decision Making Diagnostic Impression: Primary Impression: painful otitis mdia Additional Impressions: Nausea Otitis media, left Qualified Codes: H66.002 - Acute suppurative otitis media without spontaneous rupture of ear drum, left ear ER Course Patient with L OM and nausea. DDx: OM - partially treated, labyrinthitis, mucous inflammation of GI tract, GItis amongst others. Patient need continued antibiotics and symptomatic treatment for nausea. Zofran ordered. Improved with resolution of symptoms. Patient stable for outpatient observation and treatment. Last Vital Signs Date Time Temp Pulse Resp B/P (MAP) Pulse Ox O2 Delivery O2 Flow Rate FiO2 05/28/18 21:10 98.8 80 20 157/87 95 Room Air Status: improved Disposition: HOME, SELF-CARE Condition: Improved Scripts Chlorpheniramine Maleate (CHLOR-TRIMETON) 4 Mg Tablet 4 MG PO Q6HR PRN for congestion and ear pain, #10 TAB Prov: Daryn Rios MD 05/28/18 Ondansetron Odt* (ZOFRAN ODT*) 4 Mg Tab.rapdis 4 MG BC EVERY 8 HOURS, #6 TAB 1 Refill Prov: Daryn Rios MD 05/28/18 Acetaminophen (Tylenol) 325 Mg Tablet 650 MG ORAL Q6H PRN for Prn Pain/Headache/Temp > 101, #20 TAB 0 Refills Prov: Daryn Rios MD 05/28/18 Guaifenesin/Codeine Phos* (ROBITUSSIN AC*) 118 Ml Liquid 5 ML ORAL Q6H PRN for For Cough, #90 ML 0 Refills Prov: Daryn Rios MD 05/28/18 Daryn Rios MD May 28, 2018 20:59
[2018-05-28] MEDS ORDERED: ONDANSETRON ODT4 MG BC (21:02)
[2018-05-28] MEDS ORDERED: GUAIFENESIN-CO118 M1 ORAL (21:02)
[2018-05-28] MEDS ORDERED: TYLENOL325 MG ORAL (21:02)
[2018-05-28] MEDS ORDERED: CHLOR-TRIMETON4 MG PO (21:02)
[2018-05-28 21:10] VITALS: BP 157/87
== END 2018-05-28 21:15 | disposition home or self-care (01) ==
LOC: EMR 21:11
DX: H66.92 Otitis media, unspecified, left ear (principal); R11.0 Nausea
CPT/HCPCS: 99282

== ENCOUNTER 2018-09-08 10:39 | Emergency (ER) | payer MEDICAID ==
[~2018-09-08] VITALS: Ht 157.5 cm; Wt 81.6 kg
[~2018-09-08 10:39] MED LIST changes: +ONDANSETRON ODT4 MG BC; +TYLENOL325 MG ORAL
[2018-09-08] MEDS ORDERED: NKM (10:45)
[2018-09-08 10:47] VITALS: BP 140/75
[2018-09-08] MEDS ORDERED: OLOPATADINE HCL5 ML OP (11:30)
[2018-09-08] MEDS ORDERED: AKTOB1 DROP LEFT EYE (11:30)
--- NOTE | 2018-09-08 11:32 | Emergency Room Report ---
History of Present Illness General Chief Complaint: Eye Problems Source: Patient Present Illness HPI Patient is a 58-year-old female presented after increased bilateral eye redness and itching. Patient reports having some increased congestion and cough. Patient denies any fever. She reports having some increased watery discharge. She denies any visual changes. Patient states that she is not been having any vomiting or diarrhea. Allergies: Coded Allergies: CODEINE (Verified Adverse Reaction, Intermediate, PARADOXICAL REACTION, 08/20/12) Patient History Past Medical History: see triage record Now: No Reviewed Nursing Documentation: PMH: Agreed; PSxH: Agreed Nursing Documentation-PMH Hx Cardiac Problems: No Hx Hypertension: No Hx Pacemaker: No Hx Asthma: No Hx COPD: No Hx Diabetes: No Hx Cancer: No Hx Gastrointestinal Problems: No Hx Dialysis: No Hx Neurological Problems: No Hx Cerebrovascular Accident: No Hx Seizures: No Review of Systems All Other Systems: negative except mentioned in HPI Physical Exam Vital Signs Date Time Temp Pulse Resp B/P (MAP) Pulse Ox O2 Delivery O2 Flow Rate FiO2 09/08/18 10:42 98.2 68 16 142/79 96 Room Air General Appearance: well appearing, no apparent distress, alert, GCS 15 Head: normocephalic, atraumatic ENT: hearing grossly normal, normal voice, other - bilateral eye redness, left greater than right Neck: full range of motion, supple Respiratory: no respiratory distress, speaking full sentences Cardiovascular #1: normal inspection, regular rate, rhythm Musculoskeletal: no calf tenderness Neurologic: normal gait Psychiatric: mood/affect normal Skin: no rash Medical Decision Making Diagnostic Impression: Primary Impression: Conjunctivitis ER Course Patient presented for conjunctivitis. Differential diagnosis included but wasn' t limited to glaucoma, iritis, corneal abrasion, bacterial conjunctivitis, viral conjunctivitis. Patient appears to have a conjunctivitis. The patient was advised to remain off work until no longer infectious. Patient appears stable for outpatient management does not appear to have any change in visual acuity or other concerning signs or symptoms. Last Vital Signs Date Time Temp Pulse Resp B/P (MAP) Pulse Ox O2 Delivery O2 Flow Rate FiO2 09/08/18 10:47 98.2 78 18 140/75 98 Room Air Status: improved Disposition: HOME, SELF-CARE Condition: Stable Scripts Guaifenesin* (ADULT WAL-TUSSIN*) 100 Mg/5 Ml Liquid 5 ML ORAL Q4H, #120 ML Prov: Lopez Howell MD 09/08/18 Olopatadine HCl (Olopatadine HCl) 5 Ml Drops 5 ML OP BID, #5 ML Prov: Lopez Howell MD 09/08/18 Tobramycin Sulf (Tobramycin) 5 Ml Drops 1 DROP LEFT EYE Q4H, #30 ML Prov: Lopez Howell MD 09/08/18 Patient Instructions: Bacterial Conjunctivitis, [id number] Lopez Howell MD Sep 08, 2018 11:32
[2018-09-08] MEDS ORDERED: ADULT WAL-100 MG/5 M ORAL (11:33)
[2018-09-08 11:40] VITALS: BP 132/76
== END 2018-09-08 11:42 | disposition home or self-care (01) ==
LOC: EMR 11:22
DX: H10.9 Unspecified conjunctivitis (principal); Z88.5 Allergy status to narcotic agent
CPT/HCPCS: 99282

== ENCOUNTER 2019-02-02 19:10 | Emergency (ER) | payer MEDICAID ==
[~2019-02-02] VITALS: Ht 152.4 cm; Wt 81.6 kg
[~2019-02-02 19:10] MED LIST changes: +ADULT WAL-100 MG/5 M ORAL; +AKTOB1 DROP LEFT EYE; +OLOPATADINE HCL5 ML OP
[2019-02-02 19:38] VITALS: BP 159/85
--- NOTE | 2019-02-02 19:40 | NUR ---
ED Nurse Note: Patient walked in t ER c/o dizziness X1 day. Stated that almost fainted today. AAO x4. VSS at this time, skin is dry warm, to touch. ER MD by bed side.
--- NOTE | 2019-02-02 20:06 | NUR ---
ED Nurse Note: Blood and urine collected sent down
[2019-02-02 20:14] LABS: APPEARANCE,URINE CLEAR; BASOPHILS % (AUTO) 1.4 % (0.0-2.0); BILIRUBIN, URINE NEGATIVE (NEGATIVE); GLUCOSE, URINE (UA) NEGATIVE (NEGATIVE); HEMATOCRIT 42.3 % (37.0-47.0); KETONES,URINE NEGATIVE (NEGATIVE); LEUKOCYTE ESTERASE ,URINE 2+ (NEGATIVE); LYMPHOCYTES % (AUTO) 28.9 % (20.0-45.0); MEAN CORPUSCULAR VOLUME 89 FL (80-99); MONOCYTES % (AUTO) 6.2 % (1.0-10.0); NEUTROPHILS % (AUTO) 58.5 % (45.0-75.0); NITRITE,URINE NEGATIVE (NEGATIVE); PH,URINE 6 (4.5-8.0); PLATELET COUNT 217 K/UL (150-450); PROTEIN,URINE NEGATIVE (NEGATIVE); RED BLOOD COUNT 4.77 M/UL (4.20-5.40); RED CELL DISTRIBUTION WIDTH 12.4 % (11.6-14.8); UROBILINOGEN,URINE NORMAL MG/DL (0.0-1.0); WHITE BLOOD COUNT 7.1 K/UL (4.8-10.8)
[2019-02-02 20:15] LABS: COLOR,URINE YELLOW
[2019-02-02 20:25] LABS: ANION GAP 5 mmol/L (5-15); BLOOD UREA NITROGEN 13 mg/dL (7-18); CALCIUM 9.6 MG/DL (8.5-10.1); CARBON DIOXIDE 32 MMOL/L (21-32); CHLORIDE 106 MMOL/L (98-107); CREATININE 0.8 MG/DL (0.55-1.30); POTASSIUM 3.6 MMOL/L (3.5-5.1); SODIUM 143 MMOL/L (136-145)
[2019-02-02 20:29] LABS: INR 0.9 (0.9-1.1)
[2019-02-02 20:37] LABS: ALANINE AMINOTRANSFERASE 23 U/L (12-78); ALBUMIN 4.6 G/DL (3.4-5.0); ALBUMIN/GLOBULIN RATIO 1.4 (1.0-2.7); ALKALINE PHOSPHATASE 109 U/L (46-116); ASPARTATE AMINO TRANSFERASE 22 U/L (15-37); BILIRUBIN,TOTAL 0.6 MG/DL (0.2-1.0); CREATINE KINASE 301 U/L (26-308)
--- NOTE | 2019-02-02 21:32 | Emergency Room Report ---
History of Present Illness General Chief Complaint: Dizziness Source: Patient Present Illness HPI Patient presents with lightheadedness. It happened 3 times during the day today. She is stressed. She was given water and this helped a little bit. She reports that she has been in several verbal altercations with family members today and yesterday. She also complains about stress in her job. She denies suicidal or homicidal ideation or depression. She is not taking any medication for the stress. At the time she felt lightheaded she denies palpitations, chest pain, dyspnea, weakness. She denies headache. She states she is got some fullness in her nose and the front of her face. She has had a history of sinus infections in the past. She denies any fevers or copious discharge from her nose at this time. She denies vertiginous symptoms. She was improved after drinking water. She also complains about right thigh pain. She reports that in the past due to stress she had a "mild stroke". After this she was not given any medication. She believes that there are no neurologic residua. At that time she had difficulty speaking. This seemed to be related to stress also. She denied head trauma during that time. Allergies: Coded Allergies: CODEINE (Verified Adverse Reaction, Intermediate, PARADOXICAL REACTION, 08/20/12) Patient History Past Medical History: see triage record Social History: Denies: smoking, alcohol use, drug use Social History Narrative Patient care Reviewed Nursing Documentation: PMH: Agreed; PSxH: Agreed Nursing Documentation-PMH Past Medical History: No Stated History Hx Cardiac Problems: No Hx Hypertension: No Hx Pacemaker: No Hx Asthma: No Hx COPD: No Hx Diabetes: No Hx Cancer: No Hx Gastrointestinal Problems: No Hx Dialysis: No Hx Neurological Problems: No Hx Cerebrovascular Accident: No Hx Seizures: No Review of Systems All Other Systems: negative except mentioned in HPI Physical Exam Vital Signs Date Time Temp Pulse Resp B/P (MAP) Pulse Ox O2 Delivery O2 Flow Rate FiO2 02/02/19 19:19 98.2 65 16 159/85 (109) 95 Room Air Medical Decision Making Diagnostic Impression: Primary Impression: Light-headed feeling Additional Impression: Stress ER Course Patient presents with episodes of lightheadedness today associated with increased stress. Based on her exam there is no evidence of acute stroke. Differential also includes dehydration, electrolyte imbalance, acute myocardial infarction, arrhythmia amongst others. Evaluation will be with EKG, chest x- ray and labs. CT the head is not indicated at this time. Orthostatics will be performed. EKG without injury. Chest x-ray unremarkable. Labs unremarkable. Patient improved with observation and reassurance. Discussed findings with patient and the need for outpatient follow-up. Also discussed means for stress management. No medical emergency at this time. Patient stable for outpatient observation and treatment. EKG Diagnostic Results Rate: normal Rhythm: NSR ST Segments: no acute changes Rhythm Strip Diag. Results EP Interpretation: yes Rhythm: NSR, no PVC's, no ectopy Chest X-Ray Diagnostic Results Chest X-Ray Diagnostic Results : Chest X-Ray Ordered: Yes # of Views/Limited/Complete: 1 View Indication: Other EP Interpretation: Yes Interpretation: no consolidation, no effusion, no pneumothorax Impression: No acute disease Electronically Signed by: Electronically signed by Daryn Rios MD Status: improved Disposition: HOME, SELF-CARE Condition: Improved Daryn Rios MD Feb 02, 2019 21:32
[2019-02-02 21:36] VITALS: BP 150/75
[2019-02-02 21:58] VITALS: BP 161/68
[2019-02-02 21:59] VITALS: BP 150/75
--- NOTE | 2019-02-02 22:01 | NUR ---
ER DISCHARGE NOTE: Patient is cleared to be discharged per ERMD, pt is aox4, on room air, with stable vital signs. pt was given dc and prescription instructions, pt was able to verbalize understanding, pt id band and iv site removed without complications. pt is able to ambulate with steady gait. pt took all belongings.
--- NOTE | 2019-02-03 11:40 | Diagnostic Imaging Report ---
Indication: Dyspnea Comparison: None A single view chest radiograph was obtained. Findings: Cardiomediastinal appearance is within normal limits for age. The lungs are clear. Pulmonary vascularity is appropriate. The diaphragmatic contour is smooth and costophrenic angles are sharp. No pleural effusions are identified. The bones are unremarkable. Impression: No acute findings
--- NOTE | 2019-02-04 20:32 | Cardiology Report ---
APPROVED REPORT EKG Measurement Heart [id number] Normal sinus rhythm Normal ECG
== END 2019-02-02 22:01 | disposition home or self-care (01) ==
LOC: EMR 20:56
DX: R42 Dizziness and giddiness (principal); F43.9 Reaction to severe stress, unspecified; M79.651 Pain in right thigh; Z88.6 Allergy status to analgesic agent
CPT/HCPCS: 36415; 71045; 80053; 80307; 81003; 82550; 83880; 84484; 85025; 85610; 85730; 87086; 87181; 93005; 99284

== ENCOUNTER 2019-06-10 12:20 | Emergency (ER) | payer MEDICAID ==
[~2019-06-10] VITALS: Ht 157.5 cm; Wt 81.6 kg
[2019-06-10] MEDS ORDERED: NKM (12:26)
--- NOTE | 2019-06-10 12:39 | NUR ---
ED Nurse Note: Patient walked into ED from home d/t urinary discomfort x 2 days. Denies fever/chills. Urine collected and sent to lab. DAYAND at bedside.
[2019-06-10 12:41] VITALS: BP 136/76
--- NOTE | 2019-06-10 12:42 | Emergency Room Report ---
History of Present Illness General Chief Complaint: Female Urogenital Problems Source: Patient Present Illness HPI 59-year-old female presents to the emergency department complaining of urinary frequency x2 days. Patient denies abdominal pain, dysuria, hematuria or urgency. Patient reports she has had history of UTI in the past and she states that her symptoms are consistent with what she previously experienced. Patient denies fevers or chills, nausea vomiting, constipation or diarrhea. No other aggravating or relieving factors. Allergies: Coded Allergies: CODEINE (Verified Adverse Reaction, Intermediate, PARADOXICAL REACTION, 08/20/12) Patient History Past Medical History: see triage record Past Surgical History: none Pertinent Family History: none Now: No Reviewed Nursing Documentation: PMH: Agreed; PSxH: Agreed Nursing Documentation-PMH Past Medical History: No Stated History Hx Cardiac Problems: No Hx Hypertension: No Hx Pacemaker: No Hx Asthma: No Hx COPD: No Hx Diabetes: No Hx Cancer: No Hx Gastrointestinal Problems: No Hx Dialysis: No Hx Neurological Problems: No Hx Cerebrovascular Accident: No Hx Seizures: No Review of Systems All Other Systems: negative except mentioned in HPI Physical Exam Vital Signs Date Time Temp Pulse Resp B/P (MAP) Pulse Ox O2 Delivery O2 Flow Rate FiO2 06/10/19 12:22 98.2 72 19 136/76 (96) 95 Room Air Sp02 EP Interpretation: reviewed, normal General Appearance: no apparent distress, alert, GCS 15, non-toxic Head: normocephalic, atraumatic Eyes: bilateral eye normal inspection, bilateral eye PERRL ENT: hearing grossly normal, normal voice Neck: full range of motion Respiratory: lungs clear, normal breath sounds, speaking full sentences Cardiovascular #1: regular rate, rhythm Gastrointestinal: non tender, soft Genitourinary: normal inspection, no CVA tenderness Musculoskeletal: normal range of motion, gait/station normal, non-tender Neurologic: alert, motor strength/tone normal, oriented x3, sensory intact, responsive, speech normal Psychiatric: judgement/insight normal Medical Decision Making PA Attestation Dr. Faith Is my supervising Physician whom patient management has been discussed with. Diagnostic Impression: Primary Impression: UTI (urinary tract infection) Qualified Codes: N30.01 - Acute cystitis with hematuria ER Course 59-year-old female presents to the emergency department complaining of urinary frequency x2 days. Patient denies abdominal pain, dysuria, hematuria or urgency. Patient reports she has had history of UTI in the past and she states that her symptoms are consistent with what she previously experienced. Patient denies fevers or chills, nausea vomiting, constipation or diarrhea. No other aggravating or relieving factors. Ddx considered but are not limited to UTi , Pyelo, STI, Stone, Cystitis Vital signs: are WNL, pt. is afebrile H&PE are most consistent with UTI ORDERS: - UA labs are attached --few bacteria in the presence of elevated leuks. mild UTI. ED INTERVENTIONS: Keflex 500mg PO. DISCHARGE: At this time pt. is stable for d/c to home. Will provide printed patient care instructions, and any necessary prescriptions. Care plan and follow up instructions have been discussed with the patient prior to discharge. Labs Test 06/10/19 12:35 Urine Color Yellow Urine Appearance Clear Urine pH 6 (4.5-8.0) Urine Specific Edwards 1.015 (1.005-1.035) Urine Protein 1+ (NEGATIVE) Urine Glucose (UA) Negative (NEGATIVE) Urine Ketones Negative (NEGATIVE) Urine Blood Negative (NEGATIVE) Urine Nitrite Negative (NEGATIVE) Urine Bilirubin Negative (NEGATIVE) Urine Urobilinogen Normal MG/DL (0.0-1.0) Urine Leukocyte Esterase 2+ (NEGATIVE) Urine RBC 0-2 /HPF (0 - 2) Urine WBC 2-4 /HPF (0 - 2) Urine Squamous Epithelial Cells Moderate /LPF (NONE/OCC) Urine Bacteria Few /HPF (NONE) Last Vital Signs Date Time Temp Pulse Resp B/P (MAP) Pulse Ox O2 Delivery O2 Flow Rate FiO2 06/10/19 12:22 98.2 72 19 136/76 (96) 95 Room Air Status: improved Disposition: HOME, SELF-CARE Condition: Stable Scripts Cephalexin* (KEFLEX*) 500 Mg Capsule 500 MG ORAL EVERY 12 HOURS for 5 Days, #10 CAP 0 Refills Prov: Katie Cardenas 06/10/19 Patient Instructions: Urinary Tract Infection Additional Instructions: Take medications as directed. Follow up with a Primary Care Provider in 3-5 days, even if your symptoms have resolved. --Please review list of primary care clinics, if you do not already have a primary care provider Return sooner to ED if new symptoms occur, or current symptoms become worse. - Please note that this Emergency Department Report was dictated using [employer] press operator technology software, occasionally this can lead to erroneous entry secondary to interpretation by the dictation equipment. Kaite Cardenas Jun 10, 2019 12:42
[2019-06-10] MEDS ORDERED: CEPHALEXIN500 MG ORAL (12:45)
--- NOTE | 2019-06-10 12:54 | NUR ---
ER DISCHARGE NOTE: Patient is cleared to be discharged per ERMD, pt is aox4, on room air, with stable vital signs. pt was given dc and prescription instructions, pt was able to verbalize understanding, pt id band removed. pt is able to ambulate with steady gait. pt took all belongings.
[2019-06-10 12:55] VITALS: BP 136/76
[2019-06-10 12:58] LABS: APPEARANCE,URINE CLEAR; BILIRUBIN, URINE NEGATIVE (NEGATIVE); GLUCOSE, URINE (UA) NEGATIVE (NEGATIVE); KETONES,URINE NEGATIVE (NEGATIVE); LEUKOCYTE ESTERASE ,URINE 2+ (NEGATIVE); NITRITE,URINE NEGATIVE (NEGATIVE); PH,URINE 6 (4.5-8.0); PROTEIN,URINE 1+ (NEGATIVE); UROBILINOGEN,URINE NORMAL MG/DL (0.0-1.0)
[2019-06-10] MEDS ORDERED: Cephalexin 500mg cap ORAL ONE (13:00)
[2019-06-10 13:05] LABS: COLOR,URINE YELLOW
== END 2019-06-10 13:20 | disposition home or self-care (01) ==
LOC: EMR 13:20
DX: N30.01 Acute cystitis with hematuria (principal); Z88.6 Allergy status to analgesic agent
CPT/HCPCS: 81003; Z7502; 99283

== ENCOUNTER 2020-09-21 18:20 | Emergency (ER) | payer MEDICAID ==
[~2020-09-21] VITALS: Ht 157.5 cm; Wt 81.6 kg
[~2020-09-21 18:20] MED LIST changes: +CEPHALEXIN500 MG ORAL
--- NOTE | 2020-09-21 19:49 | Emergency Room Report ---
History of Present Illness General Chief Complaint: Multiple Trauma/Fall Present Illness HPI 60-year-old female with no significant past medical history here status post fall that occurred 2 days ago. Patient reports that she stepped on a hole in the middle the pavement, twisted her ankle, and landed on her right side of body. Complains of right shoulder pain, right hip, knee, and ankle pain. Also complains of right hand pain. Denies any head injury or loss of consciousness. Denies dizziness, nausea vomiting. Also complains of lower back pain. Denies urinary, bowel incontinence. Denies saddle paresthesia. Denies tingling numbness. Denies any pain radiation at this time. Patient is postmenopausal. Denies chest pain,, no other associate symptoms. Has not taken any medication for symptom relief other than Advil. Patient is currently not on any blood thinners. Patient is neurovascularly intact. Nexus criteria is negative. No bony tenderness noted. 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 Patient History Past Medical History: see triage record Past Surgical History: none Pertinent Family History: none Now: No Immunizations: UTD Reviewed Nursing Documentation: PMH: Agreed; PSxH: Agreed Nursing Documentation-PMH Hx Cardiac Problems: No Hx Hypertension: No Hx Pacemaker: No Hx Asthma: No Hx COPD: No Hx Diabetes: No Hx Cancer: No Hx Gastrointestinal Problems: No Hx Dialysis: No Hx Neurological Problems: No Hx Cerebrovascular Accident: No Hx Seizures: No Review of Systems All Other Systems: negative except mentioned in HPI Physical Exam Vital Signs Date Time Temp Pulse Resp B/P (MAP) Pulse Ox O2 Delivery O2 Flow Rate FiO2 09/21/20 19:11 99.0 68 18 100 Room Air Sp02 EP Interpretation: reviewed, normal General Appearance: no apparent distress, alert, GCS 15, non-toxic Head: normocephalic, atraumatic Eyes: bilateral eye normal inspection, bilateral eye PERRL ENT: hearing grossly normal, no angioedema, normal voice Neck: full range of motion, supple, thyroid normal, no meningismus, no bony tend, no carotid bruits, supple/symm/no masses, other - Nexus criteria is negative Respiratory: no rhonchi, no respiratory distress, no retraction, no accessory muscle use, no wheezing Cardiovascular #1: no gallop, no murmur Cardiovascular #2: 2+ carotid (R), 2+ carotid (L), 2+ radial (R), 2+ radial (L), 2+ dorsalis pedis (R), 2+ dorsalis pedis (L) Gastrointestinal: no mass, no organomegaly, no peritonitis, no bruit, non- distended Rectal: deferred Genitourinary: no CVA tenderness Musculoskeletal: back normal, normal range of motion, digits/nails normal, no calf tenderness, gait/station normal, no lower extremity edema, non-tender, other - Patient is neurovascularly intact, no impingement sign noted Neurologic: alert, motor strength/tone normal, oriented x3, sensory intact, responsive, speech normal Psychiatric: judgement/insight normal, memory normal, mood/affect normal, no suicidal/homicidal ideation Skin: no rash Lymphatic: no adenopathy Medical Decision Making PA Attestation All diagnoses and treatment plans were reviewed and discussed with my supervising physician Dr. Sparks Diagnostic Impression: Primary Impression: Cervical muscle strain Additional Impressions: Lumbar strain Shoulder sprain Knee sprain Ankle sprain ER Course 60-year-old female with no significant past medical history here status post fall that occurred 2 days ago. Patient reports that she stepped on a hole in the middle the pavement, twisted her ankle, and landed on her right side of body. Complains of right shoulder pain, right hip, knee, and ankle pain. Also complains of right hand pain. Denies any head injury or loss of consciousness. Denies dizziness, nausea vomiting. Also complains of lower back pain. Denies urinary, bowel incontinence. Denies saddle paresthesia. Denies tingling numbness. Denies any pain radiation at this time. Patient is postmenopausal. Denies chest pain,, no other associate symptoms. Has not taken any medication for symptom relief other than Advil. Patient is currently not on any blood thinners. Patient is neurovascularly intact. Nexus criteria is negative. No bony tenderness noted. Ddx considered but are not limited to: Lumbar spine sprain, strain, fracture, contusion, neuropathy, cervical sprain versus strain versus fracture, shoulder sprain versus strain versus tendinitis, hand contusion versus sprain versus fracture, ankle or knee sprain versus strain versus fracture Vital signs: are WNL, pt. is afebrile H&PE are most consistent with: Ankle sprain, knee sprain, cervical sprain, lumbar sprain, shoulder sprain ORDERS: Lumbar spine x-ray, C-spine x-ray, right shoulder x-ray, right knee and right ankle x-ray, right hand x-ray, patient refused to get a CT scan report th at she gets anxious when going side machines. Robaxin, Motrin, lidocaine patch ER intervention: Patient deferred any pain medication in ED. DISCHARGE: At this time pt. is stable for d/c to home. Will provide printed patient care instructions, and any necessary prescriptions. Care plan and follow up instructions have been discussed with the patient prior to discharge. Take medication as directed, follow with your primary care provider, if worsening symptom return to the emergency room Other X-Ray Diagnostic Results Other X-Ray Diagnostic Results #1: X-Ray ordered: C-spine # of Views/Limited Vs Complete: 3 View Indication: Pain EP Interpretation: Yes PA Xray: Interpretation reviewed, by supervising MD, and agrees with findings. Interpretation: no dislocation, no soft tissue swelling, no fractures Impression: No acute disease Electronically Signed by: Alanna Martinez PA-C Other X-Ray Diagnostic Results #2: X-Ray ordered: L-spine # of Views/Limited Vs Complete: 3 View Indication: Pain EP Interpretation: Yes PA Xray: Interpretation reviewed, by supervising MD, and agrees with findings. Interpretation: no dislocation, no soft tissue swelling, no fractures Impression: No acute disease Electronically Signed by: Alanna Martinez PA-C Other X-Ray Diagnostic Results #3: X-Ray ordered: Right hip pelvis # of Views/Limited Vs Complete: 1 View Indication: Pain EP Interpretation: Yes PA Xray: Interpretation reviewed, by supervising MD, and agrees with findings. Interpretation: no dislocation, no soft tissue swelling, no fractures Impression: No acute disease Electronically Signed by: Alanna Martinez PA-C Other X-Ray Diagnostic Results #4: X-Ray ordered: Right shoulder # of Views/Limited Vs Complete: 3 View Indication: Pain EP Interpretation: Yes PA Xray: Interpretation reviewed, by supervising MD, and agrees with findings. Interpretation: no dislocation, no soft tissue swelling, no fractures Impression: No acute disease Electronically Signed by: Alanna Martinez PA-C Other X-Ray Diagnostic Results #5: X-Ray ordered: Right hand # of Views/Limited Vs Complete: 2 View Indication: Pain EP Interpretation: Yes PA Xray: Interpretation reviewed, by supervising MD, and agrees with findings. Interpretation: no dislocation, no soft tissue swelling, no fractures Impression: No acute disease Electronically Signed by: Alanna Martinez PA-C Other X-Ray Diagnostic Results #6: X-Ray ordered: Right knee # of Views/Limited Vs Complete: 2 View Indication: Pain EP Interpretation: Yes PA Xray: Interpretation reviewed, by supervising MD, and agrees with findings. Interpretation: no dislocation, no soft tissue swelling, no fractures Impression: No acute disease Electronically Signed by: Alanna Martinez PA-C Other X-Ray Diagnostic Results #7: X-Ray ordered: Right ankle # of Views/Limited Vs Complete: 3 View Indication: Pain EP Interpretation: Yes PA Xray: Interpretation reviewed, by supervising MD, and agrees with findings. Interpretation: no dislocation, no soft tissue swelling, no fractures Impression: No acute disease Electronically Signed by: Alanna Martinez PA-C Last Vital Signs Date Time Temp Pulse Resp B/P (MAP) Pulse Ox O2 Delivery O2 Flow Rate FiO2 09/21/20 19:11 99.0 68 18 100 Room Air Disposition: HOME, SELF-CARE Condition: Stable Referrals: [facility],REFERRING (PCP) Patient Instructions: Ankle Sprain, [id number], Cervical Strain and Sprain With Rehab-SportsMed, Lumbosacral Strain, Shoulder Sprain Additional Instructions: Take medication as directed, follow with your primary care provider, if worsening symptom return to the emergency room Alanna Chilel Sep 21, 2020 19:49
[2020-09-21] MEDS ORDERED: ROBAXIN-500MG ORAL (20:31)
[2020-09-21] MEDS ORDERED: LIDODERM700 M1 TOPIC (20:31)
[2020-09-21] MEDS ORDERED: IBUPROFEN600 M1 ORAL (20:31)
[2020-09-21 20:33] VITALS: BP 132/74
--- NOTE | 2020-09-22 11:02 | Diagnostic Imaging Report ---
Indication: Ankle pain status post injury Technique: 2 views of the ankle. Note per technologist unable to stand the lateral view to PACS due to IT issue. Comparison: None FINDINGS/IMPRESSION: Limited, suboptimal exam as the lateral view is not available for review. Only a single frontal view of the ankle is available. Within these limitations: Bony mineralization appears within normal limits. Ankle mortise appears intact. No definite fractures appreciated. No radiopaque foreign body.
--- NOTE | 2020-09-22 11:05 | Diagnostic Imaging Report ---
Indication: Knee pain status post injury Technique: 2 views of the right knee Comparison: None Findings: Limited evaluation as only 2 views were obtained. Complete knee series can be obtained for more sensitive evaluation as clinically indicated. With the limitations of this exam: No acute fracture or dislocations identified. There are degenerative changes with tricompartmental osteophytes and mild narrowing of the medial femorotibial compartment. No significant suprapatellar joint effusion. No radiopaque foreign body. There are atherosclerotic calcifications. IMPRESSION: Degenerative changes. No acute fracture or dislocation.
--- NOTE | 2020-09-22 11:52 | Diagnostic Imaging Report ---
Indication: Right hand pain status post injury Technique: 3 views of the right hand acquired. Note that for the x-ray technologist unable to stand the lateral view of the hand to PACS due to IT issue. Comparison: None FINDINGS/IMPRESSION: Limited, suboptimal exam as the lateral view is not available for review. Only frontal and oblique views are available for review. Within these limitations: Bony mineralization appears within normal limits. No acute fracture or dislocation is identified. No appreciable soft tissue defect/laceration. No radiopaque foreign body.
--- NOTE | 2020-09-22 11:59 | Diagnostic Imaging Report ---
Indication: Shoulder pain status post injury Technique: 3 views of the right shoulder Comparison: None Findings: Bony mineralization within normal limits. No acute fracture is identified. Glenohumeral joint is maintained, without evidence of dislocation. There is degenerative changes of the acromioclavicular joint with productive changes/osteophyte formation. Imaged portions of the right lung are without focal consolidation. No radiopaque foreign body. IMPRESSION: Degenerative changes. No acute fracture or dislocation.
--- NOTE | 2020-09-22 12:09 | Diagnostic Imaging Report ---
Indication: Pelvic pain status post injury Technique: Single frontal view of the pelvis Comparison: None FINDINGS/IMPRESSION: No radiographically appreciable acute fracture. More sensitive evaluation is made with CT as clinically indicated. Bilateral hip joints and symphysis pubis maintained, without evidence of dislocation. Degenerative changes of the lower lumbar spine partially visualized. No radiopaque foreign body.
--- NOTE | 2020-09-22 12:13 | Diagnostic Imaging Report ---
Indication: Back pain status post injury Technique: 3 views of the lumbar spine Comparison: None Findings: There are 5 nonrib bearing lumbar type vertebral bodies, assuming 12 paired ribs. No radiographically appreciable acute lumbar spine fracture. Lumbar lordosis is maintained, without evidence of spondylolisthesis. No evidence of vertebral body compression fracture. There mild degenerative changes most pronounced in the lower lumbar spine with disc space narrowing and facet arthropathy. No radiopaque foreign body. IMPRESSION: No plain film evidence of acute fracture or traumatic malalignment. Overall mild degenerative changes most pronounced in the lower lumbar spine.
--- NOTE | 2020-09-22 13:15 | Diagnostic Imaging Report ---
Indication: Neck pain status post injury Technique: XRAY C Spine 2-3v Comparison: None Findings: No acute cervical spine fracture is appreciated. There is straightening of the cervical lordosis without evidence of spondylolisthesis. No evidence of dens fracture on open mouth view. IMPRESSION: No radiographically appreciable acute cervical spine fracture. More sensitive evaluation could be made with CT as clinically indicated.
== END 2020-09-21 20:38 | disposition home or self-care (01) ==
LOC: EMR 19:05
DX: S16.1XXA Strain of muscle, fascia and tendon at neck level, initial encounter (principal); S39.012A Strain of muscle, fascia and tendon of lower back, initial encounter; S43.401A Unspecified sprain of right shoulder joint, initial encounter; S83.91XA Sprain of unspecified site of right knee, initial encounter; S93.401A Sprain of unspecified ligament of right ankle, initial encounter; X50.1XXA Overexertion from prolonged static or awkward postures, initial encounter; Y92.9 Unspecified place or not applicable; Z88.6 Allergy status to analgesic agent
CPT/HCPCS: 72020; 72040; 72170; 73030; 73130; 73560; 73600; Z7502; 99284